=== PATIENT | female | born 1975 | race Caucasian/White ===

== ENCOUNTER 2016-02-17 10:47 | Emergency (ER) | payer BC, OTHER ==
--- NOTE | 2016-02-17 11:44 | DIAGNOSTIC IMAGING REPORT ---
PROCEDURE: XR LUMBAR SPINE 2 OR 3 VIEWS INDICATION: LOWER BACK PAIN TECHNIQUE: Three views. COMPARISON: None. FINDINGS: Osseous structures and disc spaces are normal. No evidence of an acute process or fracture. IMPRESSION: 1. Negative lumbar spine.
--- NOTE | 2016-02-17 15:20 | ED CLINICAL REPORT ---
Clinical Report - Physicians/Mid Levels [facility] [address] [place] [address] 02/17/2016 10:52 Patient: KAYLENE ZAMBRANO Time Seen: 11:13. Arrived- By private vehicle. Historian- patient. HISTORY OF PRESENT ILLNESS Chief Complaint: BACK PAIN. Onset was yesterday and it is still present. It was abrupt in onset and has been constant. It is described as being severe and in the area of the lower lumbar spine. The quality is noted to be sharp. No radiation. No bladder dysfunction, bowel dysfunction or sensory loss. Patient denies an injury. Similar symptoms previously: Several times. Evaluation/treatment- chiropractor. REVIEW OF SYSTEMS No chills, fever, sweats, calf pain or chest pain. No cough, difficulty breathing, pedal edema, palpitations or constipation. No diarrhea, nausea, vomiting or urinary problems. All systems otherwise negative, except as recorded above. PAST HISTORY PCP - Duran. Problems: Depression . Anxiety . Additional Surgeries: Lipoma removal . Medications: Zoloft 100mg day . Allergies: Neomycin. Tape. SOCIAL HISTORY Never smoker. Occasional alcohol use. No drug use. FAMILY HISTORY Cancer in first-degree relative (mother and father). ADDITIONAL NOTES The nursing notes have been reviewed. PHYSICAL EXAM Vital Signs: 02/17/2016 10:54 BP: 128/82. HR: 80. RR: 20. O2 saturation: 100%. Temp: 98.2 F. Pain level now: 3/10. Have been reviewed. Appearance: Alert. Eyes: Pupils equal, round and reactive to light. ENT: Pharynx normal. Neck: Normal inspection. Neck nontender. Painless ROM. No vertebral tenderness. CVS: Heart sounds normal. Pulses normal. Respiratory: No respiratory distress. Abdomen: No visible injury. Soft and nontender. Bowel sounds normal. No organomegaly. No mass. Back: Normal inspection. Muscle spasm of the back. Severely limited ROM in the back- in the lumbar spine: decreased flexion, extension, right lateral bending, left lateral bending and rotation to the right and left. No vertebral point tenderness. Skin: Skin warm and dry. Normal skin color. Normal skin turgor. Extremities: Extremities exhibit normal ROM. Extremities nontender. No calf tenderness. LABS, X-RAYS, AND EKG LS-Spine X-rays: No fracture. The X-rays were interpreted by the radiologist and contemporaneously by me. Laboratory Tests: UA-Culture if indicated: (SRINIVASAN: 02/17/2016 11:05) ( MsgRcvd 02/17/2016 11:31) Final results Test Result Flag Units (Reference) URINE COLOR YELLOW URINE APPEARANCE CLEAR URINE GLUCOSE NEGATIVE (NEGATIVE) URINE BILIRUBIN NEGATIVE (NEGATIVE) URINE KETONE NEGATIVE (NEGATIVE) URINE SPECIFIC GRAVITY 1.015 (1.010-1.030) URINE PH 6.5 (5.0-8.0) URINE PROTEIN NEGATIVE (NEGATIVE) URINE UROBILINOGEN 0.2 EU/dL (0.2-1.0) URINE NITRITE NEGATIVE (NEGATIVE) URINE BLOOD TRACE-INTACT (NEGATIVE) URINE LEUK ESTERASE NEGATIVE (NEGATIVE) URINE RBC 1-3 rbc/hpf (0-1) URINE WBC 1-3 wbc/hpf (0-1) URINE EPITHELIAL CELLS 1-3 EPI/hpf (0-5) URINE BACTERIA TRACE (<1+) (NONE SEEN) URINE COMMENT CULT NOT INDICATED URINE CULTURES ARE SET-UP BASED ON THE FOLLOWING CRITERIA:POSITIVE NITRITEPOSITIVE LEUKOCYTE ESTERASEGREATER THAN 10 WHITE BLOOD CELLSMODERATE (2+) OR GREATER BACTERIA . PROGRESS AND PROCEDURES Course of Care: Patient is stable. Patient/family counseled. Old medical records ordered. Old records unavailable. Disposition: Discharged. Condition: stable. CLINICAL IMPRESSION Nontraumatic lumbar back pain. INSTRUCTIONS Apply ice. Don't apply ice directly to skin and don't use while asleep. No driving or operating machinery while taking medication. Sedative medication was given during your visit. No lifting greater than 5 lbs, no bending or stooping or no prolonged sitting until released. Do not work until released. Warnings: GENERAL WARNINGS: Return or contact your physician immediately if your condition worsens or changes unexpectedly, if not improving as expected, or if other problems arise. Prescription Medications: Hydrocodone/APAP 5mg/325mg: take 1 to 2 orally every 6 hours as needed for pain. Dispense fifteen (15). No refills. OTC Medications: Motrin (available over the counter): take according to label instructions. Understanding of the discharge instructions verbalized. Follow-up with: Lisa Hatch, [facility], , [facility], [address] [place] [address], [id number] Follow up in four days. Call for the next available appointment. (Electronically signed by Chintan Perales MD 02/28/2016 10:00)
--- NOTE | 2016-02-17 15:20 | ED NURSING NOTES ---
Clinical Report - Nurses [facility] [address] [place] [address] 02/17/2016 10:52 [id number] TRI[facility] Triage time 10:54. Acuity: LEVEL 3. Chief Complaint: BACK PAIN and (LOWER BACK PAIN, toes are numb). Alert. No acute distress. SEPSIS SCREEN: Sepsis Screen: negative. Negative (no infection suspected/documented). JAMIE COMA SCORE: [place] Coma Scale: 15- eyes open spontaneously (4); best verbal response- oriented x 4 (5); best motor response- obeys commands (6). --10:59 Milla Schmid R.N. 10:54 02/17/16. BP: 128/82. HR: 80. RR: 20. O2 saturation: 100%. Temp: 98.2 F. Pain level now: 04/23. Additional comments: moving up to 10. --10:59 Milla Schmid R.N. Weight: 78.9 kg. Height/Length: 68 inches. BMI: 26.5. --10:59 Milla Schmid R.N. Medications Zoloft 100mg day . --10:55 Milla Schmid R.N. Medication/allergy information source: the patient. --10:59 Milla Schmid R.N. Allergies Tape. --10:55 Milla Schmid R.N. History Arrived by EMS. Historian: patient. Primary physician (LATRICE). This started yesterday. She has had new onset of constant numbness of the right foot and left foot (today - still present). No history of recent trauma. No extremity pain. 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 PAST MEDICAL HX: Tetanus status: unknown. Last normal menstrual period was 2 weeks ago. SOCIAL HX: Smoker- current status unknown. Occasional alcohol use. No drug use. FALL RISK ASSESSMENT: Fall risk assessment completed. No fall risk identified. NUTRITIONAL RISK ASSESSMENT: The nutritional risk assessment revealed no deficiencies. FUNCTIONAL ASSESSMENT: Functional assessment: no impairments noted. LEARNING NEEDS ASSESSMENT: The learning needs assessment revealed no barriers. SKIN INTEGRITY ASSESSMENT: Skin integrity risk assessment completed. No skin integrity risk identified. --10:59 Milla Schmid R.N. PROBLEMS: Depression . Anxiety . --10:57 Milla Schmid R.N. ADDITIONAL SURGERIES: Lipoma removal . --10:57 Milla Schmid R.N. Interventions ID band on patient. To room. --10:59 Milla Schmid R.N. PHYSICAL ASSESSMENT To room via stretcher. Patient gowned. GENERAL / NEURO / PSYCH: Alert. Oriented X 4. Appears in pain and anxious. RESPIRATORY: Respirations not labored. CVS: Capillary refill less than 2 seconds. GI / : Abdomen nontender. EXTREMITIES: Limited ROM present (Lying on back, " too painful to turn"). BACK: Limited ROM of the back. --11:01 Milla Schmid R.N. NURSING PROGRESS NOTES Cold pack applied. Patient gowned. Two patient identifiers checked. Call light placed in reach. Side rails up x 2. Bed placed in lowest position. Brakes of bed on. Patient ready for evaluation. --11:01 Milla Schmid R.N. Urine hemastix test negative. (POC test reference range: negative). --11:16 Milla Schmid R.N. Patient ID band checked for patient name: patient confirmed. Instructions provided to collect clean catch urine and patient verbalized understanding. Clean catch urine collected with return of yellow-colored clear urine; sample sent to lab for urinalysis and culture. Specimen labeled in the presence of the patient. --11:16 Milla Schmid R.N. 13:07 02/17/2016 Site #1 started via IV in the right antecubital space with an 22g angiocath; one attempt. Saline lock flushed with 10 mL saline. --13:17 Milla Schmid R.N. 13:08 02/17/2016 Toradol IVP 30 mg given over 1 minute(s) via site #1. Allergies verified and confirmed 5 rights. IV patency established. IV site checked: no pain, redness, or swelling. IV flushed thoroughly pre- and post-medication administration. IVP given by RN. --13:18 Milla Schmid R.N. 13:14 02/17/2016 Valium (Diazepam) IVP 2 mg given over 2 minute(s) via site #1. Allergies verified, confirmed 5 rights and sedative warning given to the patient. IV patency established. IV site checked: no pain, redness, or swelling. IV flushed thoroughly pre- and post-medication administration. IVP given by RN. --13:19 Milla Schmid R.N. 13:55 02/17/2016 Zofran (Ondansetron HCl) IVP 4 mg given over 2 minute(s) via site #1. Allergies verified and confirmed 5 rights. IV patency established. IV site checked: no pain, redness, or swelling. IV flushed thoroughly pre- and post-medication administration. IVP given by RN. --14:05 Milla Schmid R.N. 14:01 02/17/2016 Dilaudid (HYDROmorphone HCl PF) IVP 0.5 mg given over 1 minute(s) via site #1. Allergies verified, confirmed 5 rights and sedative warning given to the patient. IV patency established. IV site checked: no pain, redness, or swelling. IV flushed thoroughly pre- and post-medication administration. IVP given by RN. --14:06 Milla Schmid R.N. DISPOSITION / DISCHARGE 15:02/17/2016 Site #1 removed upon discharge. Catheter intact. --15:29 Wan Florian R.N. 15:02/17/16. Condition at departure: improved. The goals identified in the patient's plan of care were met. No learning barriers present. Discharge instructions provided and reviewed with the patient. Reviewed warnings. Reviewed medication(s). Treatments reviewed. Patient verbalized understanding. Written instructions provided in [place]ian. The patient was discharged by the physician. She was discharged home and accompanied by family. She left the Emergency Department in a wheelchair and via private vehicle. Family member driving. FALL RISK ASSESSMENT: Fall risk assessment completed. No fall risk identified. --15:29 Wan Florian R.N. 15:02/17/16. BP: 124/70. HR: 80. RR: 14. O2 saturation: 100% on room air. Temp: 98.2 F (oral). --15:29 Wan Florian R.N. 15:29 02/17/16. Departure time: 15:29. --15:29 Wan Florian R.N. Locked/Released at 02/17/2016 15:37 by Wan Florian R.N.
--- NOTE | 2016-02-17 15:20 | ED CLINICAL REPORT ---
Clinical Report - Physicians/Mid Levels [facility] [address] [place] [address] 02/17/2016 10:52 Patient: KAYLENE ZAMBRANO Time Seen: 11:13. Arrived- By private vehicle. Historian- patient. HISTORY OF PRESENT ILLNESS Chief Complaint: BACK PAIN. Onset was yesterday and it is still present. It was abrupt in onset and has been constant. It is described as being severe and in the area of the lower lumbar spine. The quality is noted to be sharp. No radiation. No bladder dysfunction, bowel dysfunction or sensory loss. Patient denies an injury. Similar symptoms previously: Several times. Evaluation/treatment- chiropractor. REVIEW OF SYSTEMS No chills, fever, sweats, calf pain or chest pain. No cough, difficulty breathing, pedal edema, palpitations or constipation. No diarrhea, nausea, vomiting or urinary problems. All systems otherwise negative, except as recorded above. PAST HISTORY PCP - Duran. Problems: Depression . Anxiety . Additional Surgeries: Lipoma removal . Medications: Zoloft 100mg day . Allergies: Neomycin. Tape. SOCIAL HISTORY Never smoker. Occasional alcohol use. No drug use. FAMILY HISTORY Cancer in first-degree relative (mother and father). ADDITIONAL NOTES The nursing notes have been reviewed. PHYSICAL EXAM Vital Signs: 02/17/2016 10:54 BP: 128/82. HR: 80. RR: 20. O2 saturation: 100%. Temp: 98.2 F. Pain level now: 3/10. Have been reviewed. Appearance: Alert. Eyes: Pupils equal, round and reactive to light. ENT: Pharynx normal. Neck: Normal inspection. Neck nontender. Painless ROM. No vertebral tenderness. CVS: Heart sounds normal. Pulses normal. Respiratory: No respiratory distress. Abdomen: No visible injury. Soft and nontender. Bowel sounds normal. No organomegaly. No mass. Back: Normal inspection. Muscle spasm of the back. Severely limited ROM in the back- in the lumbar spine: decreased flexion, extension, right lateral bending, left lateral bending and rotation to the right and left. No vertebral point tenderness. Skin: Skin warm and dry. Normal skin color. Normal skin turgor. Extremities: Extremities exhibit normal ROM. Extremities nontender. No calf tenderness. LABS, X-RAYS, AND EKG LS-Spine X-rays: No fracture. The X-rays were interpreted by the radiologist and contemporaneously by me. Laboratory Tests: UA-Culture if indicated: (SRINIVASAN: 02/17/2016 11:05) ( MsgRcvd 02/17/2016 11:31) Final results Test Result Flag Units (Reference) URINE COLOR YELLOW URINE APPEARANCE CLEAR URINE GLUCOSE NEGATIVE (NEGATIVE) URINE BILIRUBIN NEGATIVE (NEGATIVE) URINE KETONE NEGATIVE (NEGATIVE) URINE SPECIFIC GRAVITY 1.015 (1.010-1.030) URINE PH 6.5 (5.0-8.0) URINE PROTEIN NEGATIVE (NEGATIVE) URINE UROBILINOGEN 0.2 EU/dL (0.2-1.0) URINE NITRITE NEGATIVE (NEGATIVE) URINE BLOOD TRACE-INTACT (NEGATIVE) URINE LEUK ESTERASE NEGATIVE (NEGATIVE) URINE RBC 1-3 rbc/hpf (0-1) URINE WBC 1-3 wbc/hpf (0-1) URINE EPITHELIAL CELLS 1-3 EPI/hpf (0-5) URINE BACTERIA TRACE (<1+) (NONE SEEN) URINE COMMENT CULT NOT INDICATED URINE CULTURES ARE SET-UP BASED ON THE FOLLOWING CRITERIA:POSITIVE NITRITEPOSITIVE LEUKOCYTE ESTERASEGREATER THAN 10 WHITE BLOOD CELLSMODERATE (2+) OR GREATER BACTERIA . PROGRESS AND PROCEDURES Course of Care: Patient is stable. Patient/family counseled. Old medical records ordered. Old records unavailable. Disposition: Discharged. Condition: stable. CLINICAL IMPRESSION Nontraumatic lumbar back pain. INSTRUCTIONS Apply ice. Don't apply ice directly to skin and don't use while asleep. No driving or operating machinery while taking medication. Sedative medication was given during your visit. No lifting greater than 5 lbs, no bending or stooping or no prolonged sitting until released. Do not work until released. Warnings: GENERAL WARNINGS: Return or contact your physician immediately if your condition worsens or changes unexpectedly, if not improving as expected, or if other problems arise. Prescription Medications: Hydrocodone/APAP 5mg/325mg: take 1 to 2 orally every 6 hours as needed for pain. Dispense fifteen (15). No refills. OTC Medications: Motrin (available over the counter): take according to label instructions. Understanding of the discharge instructions verbalized. Follow-up with: Lisa Hatch, [facility], , [facility], [address] [place] [address], [phone] Follow up in four days. Call for the next available appointment. (Electronically signed by Chintan Perales MD 02/28/2016 10:00)
--- NOTE | 2016-02-17 15:20 | ED ORDER SUMMARY ---
..... Patient: KAYLENE ZAMBRANO OrderSheet [facility] VisitID: [id number] [place] [address] 40y, F Registration Date/Time: 02/17/2016 ORDER SHEET Weight: 78.9 kg Allergies: Tape, Neomycin GENERAL ORDERS: POC - Urine hCG (10:59 02/17/2016 Sebastian WADDELL) (Ack 11:06 SRoberts R.N.) (Ack 11:07 Yaneli) (11:17 Ramanandez) UA-Culture if indicated Urgent (11:06 02/17/2016 SRoberts R.N. verbal order read back to Sebastian WADDELL) (Ack 11:06 Yaneli) (11:17 Yaneli) Lumbar Spine 2 or 3V Urgent (11:13 02/17/2016 Sebastian WADDELL) (Ack 11:14 Yaneli) (11:33 NHouse ER Tech1) MEDICATION ORDERS: IV FLUIDS: Toradol IV 30 mg (NOW) (12:58 02/17/2016 Sebastian WADDELL) (Ack 13:01 SRoberts R.N.) (13:18 SRoberts R.N.) Valium IV 2 mg (HIGH ALERT MEDICATION, NOW) (12:58 02/17/2016 Sebastian WADDELL) (Ack 13:01 SRoberts R.N.) (13:20 SRoberts R.N.) IV Saline Lock (13:17 02/17/2016 SRoberts R.N. verbal order read back to Sebastian WADDELL) (13:17 SRoberts R.N.) Dilaudid IV 0.5 mg (HIGH ALERT MEDICATION, NOW) (13:51 02/17/2016 Sebastian WADDELL) (14:06 SRoberts R.N.) Zofran IV 4 mg (NOW) (13:51 02/17/2016 Sebastian WADDELL) (14:05 SRoberts R.N.) ORDER SHEET NOTES: [Electronically signed by Wan Florian R.N. (15:37 02/17/2016)] [Electronically signed by Chintan Perales MD (10:00 02/28/2016)] [Electronically locked/signed by Wan Florian R.N. (15:37 02/17/2016)]
--- NOTE | 2016-02-17 15:20 | ED ORDER SUMMARY ---
..... Patient: KAYLENE ZAMBRANO OrderSheet [facility] VisitID: [id number] [place] [address] 40y, F Registration Date/Time: 02/17/2016 ORDER SHEET Weight: 78.9 kg Allergies: Tape, Neomycin GENERAL ORDERS: POC - Urine hCG (10:59 02/17/2016 Sebastian WADDELL) (Ack 11:06 SRoberts R.N.) (Ack 11:07 Yaneli) (11:17 Ramanandez) UA-Culture if indicated Urgent (11:06 02/17/2016 SRoberts R.N. verbal order read back to Sebastian WADDELL) (Ack 11:06 Yaneli) (11:17 Yaneli) Lumbar Spine 2 or 3V Urgent (11:13 02/17/2016 Sebastian WADDELL) (Ack 11:14 Ynaeli) (11:33 NHouse ER Tech1) MEDICATION ORDERS: IV FLUIDS: Toradol IV 30 mg (NOW) (12:58 02/17/2016 Sebastian WADDELL) (Ack 13:01 SRoberts R.N.) (13:18 SRoberts R.N.) Valium IV 2 mg (HIGH ALERT MEDICATION, NOW) (12:58 02/17/2016 Sebastian WADDELL) (Ack 13:01 SRoberts R.N.) (13:20 SRoberts R.N.) IV Saline Lock (13:17 02/17/2016 SRoberts R.N. verbal order read back to Sebastian WADDELL) (13:17 SRoberts R.N.) Dilaudid IV 0.5 mg (HIGH ALERT MEDICATION, NOW) (13:51 02/17/2016 Sebastian WADDELL) (14:06 SRoberts R.N.) Zofran IV 4 mg (NOW) (13:51 02/17/2016 Sebastian WADDELL) (14:05 SRoberts R.N.) ORDER SHEET NOTES: [Electronically signed by Wan Florian R.N. (15:37 02/17/2016)] [Electronically signed by Chintan Perales MD (10:00 02/28/2016)] [Electronically locked/signed by Wan Florian R.N. (15:37 02/17/2016)]
--- NOTE | 2016-02-17 15:20 | ED NURSING NOTES ---
Clinical Report - Nurses [facility] [address] [place] [address] 02/17/2016 10:52 [id number] Triage time 10:54. Acuity: LEVEL 3. Chief Complaint: BACK PAIN and (LOWER BACK PAIN, toes are numb). Alert. No acute distress. SEPSIS SCREEN: Sepsis Screen: negative. Negative (no infection suspected/documented). JAMIE COMA SCORE: [place] Coma Scale: 15- eyes open spontaneously (4); best verbal response- oriented x 4 (5); best motor response- obeys commands (6). --10:59 Milla Schmid R.N. 10:54 02/17/16. BP: 128/82. HR: 80. RR: 20. O2 saturation: 100%. Temp: 98.2 F. Pain level now: 04/23. Additional comments: moving up to 10. --10:59 Milla Schmid R.N. Weight: 78.9 kg. Height/Length: 68 inches. BMI: 26.5. --10:59 Milla Schmid R.N. Medications Zoloft 100mg day . --10:55 Milla Schmid R.N. Medication/allergy information source: the patient. --10:59 Milla Schmid R.N. Allergies Tape. --10:55 Milla Schmid R.N. History Arrived by EMS. Historian: patient. Primary physician (LATRICE). This started yesterday. She has had new onset of constant numbness of the right foot and left foot (today - still present). No history of recent trauma. No extremity pain. 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 PAST MEDICAL HX: Tetanus status: unknown. Last normal menstrual period was 2 weeks ago. SOCIAL HX: Smoker- current status unknown. Occasional alcohol use. No drug use. FALL RISK ASSESSMENT: Fall risk assessment completed. No fall risk identified. NUTRITIONAL RISK ASSESSMENT: The nutritional risk assessment revealed no deficiencies. FUNCTIONAL ASSESSMENT: Functional assessment: no impairments noted. LEARNING NEEDS ASSESSMENT: The learning needs assessment revealed no barriers. SKIN INTEGRITY ASSESSMENT: Skin integrity risk assessment completed. No skin integrity risk identified. --10:59 Milla Schmid R.N. PROBLEMS: Depression . Anxiety . --10:57 Milla Schmid R.N. ADDITIONAL SURGERIES: Lipoma removal . --10:57 Milla Schmid R.N. Interventions ID band on patient. To room. --10:59 Milla Schmid R.N. PHYSICAL ASSESSMENT To room via stretcher. Patient gowned. GENERAL / NEURO / PSYCH: Alert. Oriented X 4. Appears in pain and anxious. RESPIRATORY: Respirations not labored. CVS: Capillary refill less than 2 seconds. GI / : Abdomen nontender. EXTREMITIES: Limited ROM present (Lying on back, " too painful to turn"). BACK: Limited ROM of the back. --11:01 Milla Schmid R.N. NURSING PROGRESS NOTES Cold pack applied. Patient gowned. Two patient identifiers checked. Call light placed in reach. Side rails up x 2. Bed placed in lowest position. Brakes of bed on. Patient ready for evaluation. --11:01 Milla Schmid R.N. Urine hemastix test negative. (POC test reference range: negative). --11:16 Milla Schmid R.N. Patient ID band checked for patient name: patient confirmed. Instructions provided to collect clean catch urine and patient verbalized understanding. Clean catch urine collected with return of yellow-colored clear urine; sample sent to lab for urinalysis and culture. Specimen labeled in the presence of the patient. --11:16 Milla Schmid R.N. 13:07 02/17/2016 Site #1 started via IV in the right antecubital space with an 22g angiocath; one attempt. Saline lock flushed with 10 mL saline. --13:17 Milla Schmid R.N. 13:08 02/17/2016 Toradol IVP 30 mg given over 1 minute(s) via site #1. Allergies verified and confirmed 5 rights. IV patency established. IV site checked: no pain, redness, or swelling. IV flushed thoroughly pre- and post-medication administration. IVP given by RN. --13:18 Milla Schmid R.N. 13:14 02/17/2016 Valium (Diazepam) IVP 2 mg given over 2 minute(s) via site #1. Allergies verified, confirmed 5 rights and sedative warning given to the patient. IV patency established. IV site checked: no pain, redness, or swelling. IV flushed thoroughly pre- and post-medication administration. IVP given by RN. --13:19 Milla Schmid R.N. 13:55 02/17/2016 Zofran (Ondansetron HCl) IVP 4 mg given over 2 minute(s) via site #1. Allergies verified and confirmed 5 rights. IV patency established. IV site checked: no pain, redness, or swelling. IV flushed thoroughly pre- and post-medication administration. IVP given by RN. --14:05 Milla Schmid R.N. 14:01 02/17/2016 Dilaudid (HYDROmorphone HCl PF) IVP 0.5 mg given over 1 minute(s) via site #1. Allergies verified, confirmed 5 rights and sedative warning given to the patient. IV patency established. IV site checked: no pain, redness, or swelling. IV flushed thoroughly pre- and post-medication administration. IVP given by RN. --14:06 Milla Schmid R.N. DISPOSITION / DISCHARGE 15:02/17/2016 Site #1 removed upon discharge. Catheter intact. --15:29 Wan Florian R.N. 15:02/17/16. Condition at departure: improved. The goals identified in the patient's plan of care were met. No learning barriers present. Discharge instructions provided and reviewed with the patient. Reviewed warnings. Reviewed medication(s). Treatments reviewed. Patient verbalized understanding. Written instructions provided in [place]. The patient was discharged by the physician. She was discharged home and accompanied by family. She left the Emergency Department in a wheelchair and via private vehicle. Family member driving. FALL RISK ASSESSMENT: Fall risk assessment completed. No fall risk identified. --15:29 Wan Florian R.N. 15:02/17/16. BP: 124/70. HR: 80. RR: 14. O2 saturation: 100% on room air. Temp: 98.2 F (oral). --15:29 Wan Florian R.N. 15:29 02/17/16. Departure time: 15:29. --15:29 Wan Florian R.N. Locked/Released at 02/17/2016 15:37 by Wan Florian R.N.
--- NOTE | 2016-02-28 10:00 | ED MAR SUMMARY ---
..... Medication Administration Record [facility] [address] [place] [address] Patient: KAYLENE ZAMBRANO Visit ID: [id number] 40y, F Weight: 78.9 kg Height/Length: 68 in BMI: 26.5 ALLERGIES: Tape, Neomycin Given 13:08 02/17/2016 Milla Schmid R.N. Medication Administered: TORADOL [IVP], Dose: 30 mg IVP over 1 minute(s), Site: #1 right AC. Medication Ordered: Toradol IV 30 mg (NOW). Given 13:14 02/17/2016 Milla Schmid R.N. Medication Administered: VALIUM [IVP] (DIAZEPAM), Dose: 2 mg IVP over 2 minute(s), Site: #1 right AC. Medication Ordered: Valium IV 2 mg (HIGH ALERT MEDICATION, NOW). Given 13:02/17/2016 Milla Schmid R.N. Medication Administered: ZOFRAN [IVP] (ONDANSETRON HCL), Dose: 4 mg IVP over 2 minute(s), Site: #1 right AC. Medication Ordered: Zofran IV 4 mg (NOW). Given 14:02/17/2016 Milla Schmid R.N. Medication Administered: DILAUDID [IVP] (HYDROMORPHONE HCL PF), Dose: 0.5 mg IVP over 1 minute(s), Site: #1 right AC. Medication Ordered: Dilaudid IV 0.5 mg (HIGH ALERT MEDICATION, NOW).
--- NOTE | 2016-02-28 10:00 | ED MAR SUMMARY ---
..... Medication Administration Record [facility] [address] [place] [address] Patient: KAYLENE ZAMBRANO Visit ID: [id number] 40y, F Weight: 78.9 kg Height/Length: 68 in BMI: 26.5 ALLERGIES: Tape, Neomycin Given 13:08 02/17/2016 Milla Schmid R.N. Medication Administered: TORADOL [IVP], Dose: 30 mg IVP over 1 minute(s), Site: #1 right AC. Medication Ordered: Toradol IV 30 mg (NOW). Given 13:14 02/17/2016 Milla Schmid R.N. Medication Administered: VALIUM [IVP] (DIAZEPAM), Dose: 2 mg IVP over 2 minute(s), Site: #1 right AC. Medication Ordered: Valium IV 2 mg (HIGH ALERT MEDICATION, NOW). Given 13:02/17/2016 Milla Schmid R.N. Medication Administered: ZOFRAN [IVP] (ONDANSETRON HCL), Dose: 4 mg IVP over 2 minute(s), Site: #1 right AC. Medication Ordered: Zofran IV 4 mg (NOW). Given 14:02/17/2016 Milla Schmid R.N. Medication Administered: DILAUDID [IVP] (HYDROMORPHONE HCL PF), Dose: 0.5 mg IVP over 1 minute(s), Site: #1 right AC. Medication Ordered: Dilaudid IV 0.5 mg (HIGH ALERT MEDICATION, NOW).
--- NOTE | 2016-02-28 10:00 | ED DISCHARGE INSTRUCTIONS ---
Patient: KAYLENE ZAMBRANO General Instructions Merged With [facility] VisitID: [id number] [place] [address] 40y, F Registration Date/Time: 02/17/2016 Nontraumatic lumbar back pain. INSTRUCTIONS Apply ice. Don't apply ice directly to skin and don't use while asleep. No driving or operating machinery while taking medication. Sedative medication was given during your visit. No lifting greater than 5 lbs, no bending or stooping or no prolonged sitting until released. Do not work until released. Warnings: GENERAL WARNINGS: Return or contact your physician immediately if your condition worsens or changes unexpectedly, if not improving as expected, or if other problems arise. Prescription Medications: Hydrocodone/APAP 5mg/325mg: take 1 to 2 orally every 6 hours as needed for pain. Dispense fifteen (15). No refills. OTC Medications: Motrin (available over the counter): take according to label instructions. Understanding of the discharge instructions verbalized. Follow-up with: Lisa Hatch, [facility], , [facility], [address] [place] [address], [id number] Follow up in four days. Call for the next available appointment. ADDITIONAL INFORMATION Back Pain [Acute Or Chronic] Back pain is usually caused by an injury to the muscles or ligaments of the spine. Sometimes the disks that separate each bone in the spine may bulge and cause pain by pressing on a nearby nerve. Back pain may also appear after a sudden twisting/bending force (such as in a car accident), after a simple awkward movement, or lifting something heavy with poor body positioning. In either case, muscle spasm is often present and adds to the pain. Acute back pain usually gets better in one to two weeks. Back pain related to disk disease, arthritis in the spinal joints or spinal stenosis (narrowing of the spinal canal) can become chronic and last for months or years. Unless you had a physical injury (for example, a car accident or fall) X-rays are usually not ordered for the initial evaluation of back pain. If pain continues and does not respond to medical treatment, x-rays and other tests may be performed at a later time. Home Care: You may need to stay in bed the first few days. But, as soon as possible, begin sitting or walking to avoid problems with prolonged bed rest (muscle weakness, worsening back stiffness and pain, blood clots in the legs). When in bed, try to find a position of comfort. A firm mattress is best. Try lying flat on your back with pillows under your knees. You can also try lying on your side with your knees bent up towards your chest and a pillow between your knees. Avoid prolonged sitting. This puts more stress on the lower back than standing or walking. During the first two days after injury, apply an ICE PACK to the painful area for 20 minutes every 2-4 hours. This will reduce swelling and pain. HEAT (hot shower, hot bath or heating pad) works well for muscle spasm. You can start with ice, then switch to heat after two days. Some patients feel best alternating ice and heat treatments. Use the one method that feels the best to you. You may use acetaminophen (Tylenol) or ibuprofen (Motrin, Advil) to control pain, unless another pain medicine was prescribed. [NOTE: If you have chronic liver or kidney disease or ever had a stomach ulcer or GI bleeding, talk with your doctor before using these medicines.] Be aware of safe lifting methods and do not lift anything over 15 pounds until all the pain is gone. Follow Up with your doctor or this facility if your symptoms do not start to improve after one week. Physical therapy may be needed. [NOTE: If X-rays were taken, they will be reviewed by a radiologist. You will be notified of any new findings that may affect your care.] Get Prompt Medical Attention if any of the following occur: Pain becomes worse or spreads to your legs Weakness or numbness in one or both legs Loss of bowel or bladder control Numbness in the groin or genital area Degenerative Disk Disease Spinal disks are gel-filled cushions between the bones of the spine (vertebrae). The disks act like shock absorbers. Over time, the disks may break down. This disorder is called degenerative disk disease (DDD). DDD can affect the neck or back. It is one of the most common causes of low back pain. It is the leading cause of disability in people under age 45 in the [place]. The pain usually remains localized to the lower back or neck. Muscle spasm is often present and adds to the pain. Disk degeneration is a natural part of aging, although it does not cause pain in most persons. It may also occur as a result of repeated minor injuries due to daily activities, sports, or accidents. It may lead to osteoarthritis of the spine. Back pain related to disk disease may come and go or become chronic and last for months or years. If the disk bulges or ruptures (also called slipped disk or herniated disk), it can put pressure on a nearby spinal nerve and cause neck or back pain that spreads down one arm or leg. X-rays or MRI (magnetic resonance imaging) scan may aid in the diagnosis. For acute pain, treatment consists of anti-inflammatory drugs, muscle relaxants, rest, ice, or heat. Narcotic pain medicines may be needed for short-term treatment of sudden worsening of pain. Due to their addictive potential, narcotics are not advised for long-term pain management. Other types of medicines are preferred. Surgery is usually not used to treat this condition unless there is a complication (such as nerve root compression). Home Care: FOR NECK PAIN: Use a comfortable pillow that supports the head and keeps the spine in a neutral position. The head should not be tilted forward or backward. FOR BACK PAIN: Avoid prolonged sitting. This puts more stress on the lower back than standing or walking. Establishing a regular exercise program to strengthen the supporting muscles of the spine will make it easier to live with DDD. During the first2 days after a flare-up of your pain, apply anice pack to the painful area for 20 minutes every 2-4 hours. This will reduce swelling and pain.Heat (hot shower, hot bath, or heating pad) works well for muscle spasm. You can start with ice, then switch to heat after2 days. Some patients feel best alternating ice and heat treatments. Use the method that feelsbest to you. You may use acetaminophen (Tylenol) or ibuprofen (Motrin, Advil) to control pain, unless another pain medicine was prescribed. [NOTE: If you have chronic liver or kidney disease or ever had a stomach ulcer or GI bleeding, talk with your doctor before using these medicines.] Follow Up with your physician, or as directed by our staff. [NOTE: If x-rays, a CT scan or an MRI scan were taken, they will be reviewed by a radiologist. You will be notified of any new findings that may affect your care.] Return Promptly or contact your doctor if any of the following occur: Increasing back pain New weakness, numbness, or pain in one or both arms or legs Foot drop (foot drags when you walk) Loss of bowel or bladder control Numbness or tingling in the buttock or groin area Unexplained fever over 100.4F (38.0C) Hydrocodone Bitartrate, Acetaminophen Oral tablet What is this medicine? ACETAMINOPHEN; HYDROCODONE (a set a EM reggie fen; sharmaine droe KOE done) is a pain reliever. It is used to treat mild to moderate pain. How should I use this medicine? Take this medicine by mouth. Swallow it with a full glass of water. Follow the directions on the prescription label. If the medicine upsets your stomach, take the medicine with food or milk. Do not take more than you are told to take. Talk to your counter professional regarding the use of this medicine in children. This medicine is not approved for use in children. What side effects may I notice from receiving this medicine? Side effects that you should report to your doctor or health rehab care assistant as soon as possible: allergic reactions like skin rash, itching or hives, swelling of the face, lips, or tongue breathing problems confusion feeling faint or lightheaded, falls stomach pain yellowing of the eyes or skin Side effects that usually do not require medical attention (report to your doctor or health rehab care assistant if they continue or are bothersome): nausea, vomiting stomach upset What may interact with this medicine? alcohol antihistamines isoniazid medicines for depression, anxiety, or psychotic disturbances medicines for sleep muscle relaxants naltrexone narcotic medicines (opiates) for pain phenobarbital ritonavir tramadol What if I miss a dose? If you miss a dose, take it as soon as you can. If it is almost time for your next dose, take only that dose. Do not take double or extra doses. Where should I keep my medicine? Keep out of the reach of children. This medicine can be abused. Keep your medicine in a safe place to protect it from theft. Do not share this medicine with anyone. Selling or giving away this medicine is dangerous and against the law. Store at room temperature between 15 and 30 degrees C (59 and 86 degrees F). Protect from light. Keep container tightly closed. Throw away any unused medicine after the expiration date. Discard unused medicine and used packaging carefully. Pets and children can be harmed if they find used or lost packages. What should I tell my health care provider before I take this medicine? They need to know if you have any of these conditions: brain tumor Crohn's disease, inflammatory bowel disease, or ulcerative colitis drink more than 3 alcohol-containing drinks per day drug abuse or addiction head injury heart or circulation problems kidney disease or problems going to the bathroom liver disease lung disease, asthma, or breathing problems an unusual or allergic reaction to acetaminophen, hydrocodone, other opioid analgesics, other medicines, foods, dyes, or preservatives or trying to get breast-feeding What should I watch for while using this medicine? Tell your doctor or health rehab care assistant if your pain does not go away, if it gets worse, or if you have new or a different type of pain. You may develop tolerance to the medicine. Tolerance means that you will need a higher dose of the medicine for pain relief. Tolerance is normal and is expected if you take the medicine for a long time. Do not suddenly stop taking your medicine because you may develop a severe reaction. Your body becomes used to the medicine. This does NOT mean you are addicted. Addiction is a behavior related to getting and using a drug for a non-medical reason. If you have pain, you have a medical reason to take pain medicine. Your doctor will tell you how much medicine to take. If your doctor wants you to stop the medicine, the dose will be slowly lowered over time to avoid any side effects. You may get drowsy or dizzy when you first start taking the medicine or change doses. Do not drive, use machinery, or do anything that may be dangerous until you know how the medicine affects you. Stand or sit up slowly. There are different types of narcotic medicines (opiates) for pain. If you take more than one type at the same time, you may have more side effects. Give your health care provider a list of all medicines you use. Your doctor will tell you how much medicine to take. Do not take more medicine than directed. Call emergency for help if you have problems breathing. The medicine will cause constipation. Try to have a bowel movement at least every 2 to 3 days. If you do not have a bowel movement for 3 days, call your doctor or health rehab care assistant. Too much acetaminophen can be very dangerous. Do not take Tylenol (acetaminophen) or medicines that contain acetaminophen with this medicine. Many non-prescription medicines contain acetaminophen. Always read the labels carefully. Ibuprofen Oral tablet What is this medicine? IBUPROFEN (eye BYOO proe fen) is a non-steroidal anti-inflammatory drug (NSAID). It is used for dental pain, fever, headaches or migraines, osteoarthritis, rheumatoid arthritis, or painful monthly periods. It can also relieve minor aches and pains caused by a cold, flu, or sore throat. How should I use this medicine? Take this medicine by mouth with a glass of water. Follow the directions on the prescription label. Take this medicine with food if your stomach gets upset. Try to not lie down for at least 10 minutes after you take the medicine. Take your medicine at regular intervals. Do not take your medicine more often than directed. A special MedGuide will be given to you by the pharmacist with each prescription and refill. Be sure to read this information carefully each time. Talk to your counter professional regarding the use of this medicine in children. Special care may be needed. What side effects may I notice from receiving this medicine? Side effects that you should report to your doctor or health rehab care assistant as soon as possible: allergic reactions like skin rash, itching or hives, swelling of the face, lips, or tongue black or bloody stools, blood in the urine or in vomit breathing problems changes in vision chest pain general ill feeling or flu-like symptoms nausea or vomiting redness, blistering, peeling or loosening of the skin, including inside the mouth slurred speech or weakness on one side of the body stomach pain unexplained weight gain or swelling unusually weak or tired yellowing of eyes or skin Side effects that usually do not require medical attention (report to your doctor or health rehab care assistant if they continue or are bothersome): constipation or diarrhea dizziness gas or heartburn stomach upset What may interact with this medicine? Do not take this medicine with any of the following medications: cidofovir ketorolac methotrexate pemetrexed This medicine may also interact with the following medications: alcohol aspirin diuretics lithium other drugs for inflammation like prednisone warfarin What if I miss a dose? If you miss a dose, take it as soon as you can. If it is almost time for your next dose, take only that dose. Do not take double or extra doses. Where should I keep my medicine? Keep out of the reach of children. Store at room temperature between 15 and 30 degrees C (59 and 86 degrees F). Keep container tightly closed. Throw away any unused medicine after the expiration date. What should I tell my health care provider before I take this medicine? They need to know if you have any of these conditions: asthma cigarette smoker drink more than 3 alcohol containing drinks a day heart disease or circulation problems such as heart failure or leg edema (fluid retention) high blood pressure kidney disease liver disease stomach bleeding or ulcers an unusual or allergic reaction to ibuprofen, aspirin, other NSAIDS, other medicines, foods, dyes, or preservatives or trying to get breast-feeding What should I watch for while using this medicine? Tell your doctor or healthcare professional if your symptoms do not start to get better or if they get worse. This medicine does not prevent heart attack or stroke. In fact, this medicine may increase the chance of a heart attack or stroke. The chance may increase with longer use of this medicine and in people who have heart disease. If you take aspirin to prevent heart attack or stroke, talk with your doctor or health rehab care assistant. Do not take other medicines that contain aspirin, ibuprofen, or naproxen with this medicine. Side effects such as stomach upset, nausea, or ulcers may be more likely to occur. Many medicines available without a prescription should not be taken with this medicine. This medicine can cause ulcers and bleeding in the stomach and intestines at any time during treatment. Ulcers and bleeding can happen without warning symptoms and can cause . To reduce your risk, do not smoke cigarettes or drink alcohol while you are taking this medicine. You may get drowsy or dizzy. Do not drive, use machinery, or do anything that needs mental alertness until you know how this medicine affects you. Do not stand or sit up quickly, especially if you are an older patient. This reduces the risk of dizzy or fainting spells. This medicine can cause you to bleed more easily. Try to avoid damage to your teeth and gums when you brush or floss your teeth. You have been given the following additional information: Back Pain (Acute Or Chronic) Degenerative Disk Disease Hydrocodone Bitartrate, Acetaminophen Oral tablet Ibuprofen Oral tablet No driving or operating machinery while taking medication. Sedative medication was given during your visit. No lifting greater than 5 lbs, no bending or stooping or no prolonged sitting until released. Do not work until released. (Electronically signed by Chintan Perales MD 02/28/2016 10:00)
--- NOTE | 2016-02-28 10:00 | ED MED RECONCILIATION SUMMARY ---
Patient: KAYLENE ZAMBRANO Medication Reconciliation Report [facility] VisitID: [id number] [address] [place] [address] 40y, F Registration Date/Time: 02/17/2016 Weight: 78.9 kg Height/Length: 68 in. BMI: 26.5 ALLERGIES: Neomycin, Tape The patient's Home Medications are listed below: THE FOLLOWING MEDICATIONS NEED TO BE RECONCILED: Zoloft 100mg day The source(s) of the original Home Medication information: patient The following Medications were given to the patient in the Emergency Department: Toradol [IVP] IVP 30 mg, administered: 02/17/2016 1:08:00 PM Valium [IVP] IVP 2 mg, administered: 02/17/2016 1:14:00 PM Zofran [IVP] IVP 4 mg, administered: 02/17/2016 1:55:00 PM Dilaudid [IVP] IVP 0.5 mg, administered: 02/17/2016 2:01:00 PM The following Medications were prescribed to the patient: Motrin (available over the counter): take according to label instructions. -- Chintan Perales MD Hydrocodone/APAP 5mg/325mg: take 1 to 2 orally every 6 hours as needed for pain. Dispense fifteen (15). No refills. -- Chintan Perales MD
--- NOTE | 2016-02-28 10:00 | ED MED RECONCILIATION SUMMARY ---
Patient: KAYLENE ZAMBRANO Medication Reconciliation Report [facility] VisitID: [id number] [address] [place] [address] 40y, F Registration Date/Time: 02/17/2016 Weight: 78.9 kg Height/Length: 68 in. BMI: 26.5 ALLERGIES: Neomycin, Tape The patient's Home Medications are listed below: THE FOLLOWING MEDICATIONS NEED TO BE RECONCILED: Zoloft 100mg day The source(s) of the original Home Medication information: patient The following Medications were given to the patient in the Emergency Department: Toradol [IVP] IVP 30 mg, administered: 02/17/2016 1:08:00 PM Valium [IVP] IVP 2 mg, administered: 02/17/2016 1:14:00 PM Zofran [IVP] IVP 4 mg, administered: 02/17/2016 1:55:00 PM Dilaudid [IVP] IVP 0.5 mg, administered: 02/17/2016 2:01:00 PM The following Medications were prescribed to the patient: Motrin (available over the counter): take according to label instructions. -- Chintan Perales MD Hydrocodone/APAP 5mg/325mg: take 1 to 2 orally every 6 hours as needed for pain. Dispense fifteen (15). No refills. -- Chintan Perales MD
== END 2016-02-17 15:29 | disposition home or self-care (01) ==
LOC: ED SRH 10:47
DX: M54.5 Low back pain (principal)
CPT/HCPCS: 90004; 93070